=== PATIENT | female | born 1965 | race Caucasian/White ===

== ENCOUNTER 2019-05-20 16:38 | Emergency (ER) | payer OTHER ==
[~2019-05-20] VITALS: Ht 154.9 cm; Wt 61.2 kg
[2019-05-20] MEDS ORDERED: SPIRONOLACTONE25 MG PO (16:55)
[2019-05-20] MEDS ORDERED: HYDROCHLOROTHIA25 M2 PO (16:55)
[2019-05-20] MEDS ORDERED: ZOLOFT50 M1 PO (16:56)
[2019-05-20 18:11] LABS: AMP/METHAMP Negative (Negative); BARBITURATES Negative (Negative); BENZODIAZEPINES Negative (Negative); COCAINE Negative (Negative); METHADONE Negative (Negative); OPIATES Negative (Negative); PCP Negative (Negative)
[2019-05-20 18:20] VITALS: BP 134/75
== END 2019-05-20 18:23 | disposition home or self-care (01) ==
LOC: ER 16:38
PROVIDERS: Emergency Medicine
DX: S13.4XXA Sprain of ligaments of cervical spine, initial encounter (principal); S00.83XA Contusion of other part of head, initial encounter; I10 Essential (primary) hypertension; F32.9 Major depressive disorder, single episode, unspecified; Z90.3 Acquired absence of stomach [part of]; Z98.890 Other specified postprocedural states; W18.39XA Other fall on same level, initial encounter; Y92.89 Other specified places as the place of occurrence of the external cause; Y93.89 Activity, other specified; Y99.8 Other external cause status